=== PATIENT | female | born 2000 | race Hispanic/Latino ===

== ENCOUNTER 2022-01-24 10:00 | Observation (INO) | payer OTHER ==
[~2022-01-24] VITALS: Ht 162.6 cm; Wt 78.5 kg
[2022-01-24] MEDS ORDERED: ONDANSETRON HCL INJ 2MG/ML 2ML 2 MG/ML VIAL IV STA (10:30)
[2022-01-24] MEDS ORDERED: KETOROLAC TROMETHAMINE 30 MG/ML VIAL IV STA (10:30)
[2022-01-24] MEDS ORDERED: SODIUM CHLORIDE 0.9% 1000ML 1,000 ML IV SCH ×2 (10:45→13:15)
[2022-01-24] MEDS ORDERED: SODIUM CHLORIDE 0.9% 1000ML 1,000 ML ONE (11:07)
[2022-01-24] MEDS ORDERED: SEVOFLURANE INHAL SOLN 250 ML PEN BTL ONE (12:15)
[2022-01-24] MEDS ORDERED: KETOROLAC TROMETHAMINE 30 MG/ML VIAL ONE (12:15)
[2022-01-24] MEDS ORDERED: POVIDONE IODINE 0.05% 0.05 % ML PO ONE (12:15)
[2022-01-24] MEDS ORDERED: PROPOFOL IV EMULSION 10 MG/ML 20 ML VIAL ONE (12:15)
[2022-01-24] MEDS ORDERED: ROCURONIUM BROMIDE 10 MG/ML 5ML VIAL IV ONE (12:15)
[2022-01-24] MEDS ORDERED: LIDOCAINE HCL 2% LOCAL INJ 5 ML SDV VIAL INJ ONE (12:15)
[2022-01-24] MEDS ORDERED: ONDANSETRON HCL INJ 2MG/ML 2ML 2 MG/ML VIAL ONE (12:15)
[2022-01-24] MEDS ORDERED: DEXAMETHASONE SOD PHOS INJ 4 MG/ML SDV ONE (12:15)
[2022-01-24] MEDS ORDERED: NEOSTIGMINE 1 MG/ML 10ML VIAL ONE (12:15)
[2022-01-24] MEDS ORDERED: ATROPINE SULFATE 1 MG/ML VIAL ONE (12:15)
[2022-01-24] MEDS ORDERED: PIPERACILLIN/TAZOBACTAM 3.375 GM VIAL ONE (13:10)
[2022-01-24] MEDS ORDERED: SODIUM CHLORIDE 0.9% 100 ML ONE (13:10)
[2022-01-24] MEDS ORDERED: MIDAZOLAM HCL 2 MG/2 ML VIAL ONE (13:29)
[2022-01-24] MEDS ORDERED: FENTANYL CITRATE/PF 100MCG/2 ML INJ ONE (13:29)
[2022-01-24 15:00] VITALS: BP 108/71
[2022-01-24 16:19] VITALS: BP 108/71
[2022-01-24] MEDS ORDERED: BUPIVACAINE HCL 0.5% INJ 30 ML VIAL INJ ONE (17:54)
[2022-01-24] MEDS ORDERED: HYDROMORPHONE 1MG/1ML INJ IV PRN (19:00)
[2022-01-24] MEDS ORDERED: ACETAMINOPHEN 1000 MG/100 ML IV PRN (19:00)
[2022-01-24] MEDS ORDERED: ONDANSETRON HCL INJ 2MG/ML 2ML 2 MG/ML VIAL IV PRN (19:00)
[2022-01-24] MEDS ORDERED: LEVOFLOXACIN 500MG/D5W 100ML 100 ML IV SCH (19:00)
[2022-01-24] MEDS: SODIUM CHLORIDE 0.9% 1000ML 1,000 ML IV SCH (19:55)
[2022-01-24 20:00] VITALS: BP 113/71
[2022-01-24] MEDS: HYDROCODONE/APAP 7.5MG-325MG 1 EA TAB PO PRN (21:00)
[2022-01-25] VITALS: BP 92/47
[2022-01-25 04:00] VITALS: BP 105/59
[2022-01-25] MEDS: SODIUM CHLORIDE 0.9% 1000ML 1,000 ML IV SCH ×2 (05:20→15:07)
[2022-01-25] MEDS: HYDROCODONE/APAP 7.5MG-325MG 1 EA TAB PO PRN ×3 (05:20→14:51)
[2022-01-25 07:52] VITALS: BP 105/63
[2022-01-25 08:21] LABS: BASOPHILS % 0.1 % (0.0-1.0); EOSINOPHILS % 0.1 % (0.0-6.0); HEMATOCRIT 34.5 % (34.2-44.1); HEMOGLOBIN 11.3 g/dL (12.0-16.0); LYMPHOCYTES # (AUTO) 1.8 (1.0-3.2); MEAN CORPUSCULAR HEMOGLOBIN 29.5 pg (28-32); MEAN CORPUSCULAR HGB CONC 32.8 g/dL (31-35); MEAN CORPUSCULAR VOLUME 90.1 fL (81-99); MONOCYTES # (AUTO) 0.8 (0.2-0.8); MONOCYTES % 5.1 % (4.4-11.3); NEUTROPHILS # (AUTO) 12.3 (2.1-6.9); NEUTROPHILS % 82.3 % (38.7-80.0); PLATELET COUNT 262 x10e3/uL (140-360); RED BLOOD COUNT 3.83 x10e6/uL (3.6-5.1); RED CELL DISTRIBUTION WIDTH 12.9 % (11.7-14.4)
[2022-01-25 08:37] VITALS: BP 105/63
[2022-01-25 08:40] LABS: ANION GAP 10.9 mmol/L (8-16); CALCIUM 8.5 mg/dL (8.4-10.2); CREATININE, SERUM 0.73 mg/dL (0.57-1.11); POTASSIUM 3.9 mmol/L (3.5-5.1)
[2022-01-25 11:13] VITALS: BP 108/76
[2022-01-25 15:44] VITALS: BP 146/60
[2022-01-25] MEDS ORDERED: LEVOFLOXACIN 500 MG TAB PO SCH (19:45)
== END 2022-01-25 19:45 | disposition home or self-care (01) ==
LOC: FSED 10:33 → INTOOBSV 13:03 → ERHOLD 13:03 → MED/SURG 14:59
PROVIDERS: ADMIT Surgery; ATTEND Surgery
DX: K35.80 Unspecified acute appendicitis (principal); Z01.818 Encounter for other preprocedural examination; Z20.822 Contact with and (suspected) exposure to COVID-19
CPT/HCPCS: 36415; 44970; 74176; 80048 ×2; 80076; 81003; 81025; 85025 ×2; 88304; C1713; C1766; G0378 ×2; J0461; J1100; J1885; J1956; J2001; J2250; J2405; J2543 ×2; J2704; J2710; J3010; J7030 ×2; J7050; U0002